=== PATIENT | female | born 2000 | race Hispanic/Latino ===

== ENCOUNTER 2021-04-29 01:21 | Emergency (ER) | payer SELFPAY ==
[~2021-04-29] VITALS: Ht 167.6 cm; Wt 77.1 kg
[2021-04-29 01:48] LABS: BASOPHILS # (AUTO) 0.1 (0.0-0.1); BASOPHILS % 0.7 % (0.0-1.0); EOSINOPHILS # (AUTO) 0.2 (0.0-0.4); EOSINOPHILS % 2.9 % (0.0-6.0); HEMATOCRIT 42.9 % (34.2-44.1); HEMOGLOBIN 14.7 g/dL (12.0-16.0); LYMPHOCYTES # (AUTO) 2.6 (1.0-3.2); LYMPHOCYTES % 36.5 % (18.0-39.1); MEAN CORPUSCULAR HEMOGLOBIN 31.3 pg (28-32); MEAN CORPUSCULAR HGB CONC 34.3 g/dL (31-35); MEAN CORPUSCULAR VOLUME 91.3 fL (81-99); MONOCYTES # (AUTO) 0.6 (0.2-0.8); NEUTROPHILS # (AUTO) 3.7 (2.1-6.9); NEUTROPHILS % 51.2 % (38.7-80.0); PLATELET COUNT 264 x10e3/uL (140-360); RED CELL DISTRIBUTION WIDTH 12.9 % (11.7-14.4)
[2021-04-29] MEDS ORDERED: KETOROLAC TROMETHAMINE 30 MG/ML VIAL IV STA (01:57)
[2021-04-29 02:01] LABS: ANION GAP 13.7 mmol/L (8-16); BLOOD UREA NITROGEN 6 mg/dL (7-26); BUN/CREATININE RATIO 8 (6-25); CALCIUM 9.6 mg/dL (8.4-10.2); CARBON DIOXIDE 24 mmol/L (22-29); CHLORIDE 103 mmol/L (98-107); CREATINE KINASE 56 IU/L (29-168); CREATININE, SERUM 0.76 mg/dL (0.57-1.11); EST GLOMERULAR FILTRATION RATE 95 ML/MIN (60-); GLUCOSE 101 mg/dL (74-118); POTASSIUM 3.7 mmol/L (3.5-5.1); SODIUM 137 mmol/L (136-145)
[2021-04-29 02:10] LABS: CLARITY,URINE CLOUDY (CLEAR); COLOR,URINE YELLOW (YELLOW); KETONES,URINE NEGATIVE (NEGATIVE); LEUKOCYTE ESTERASE ,URINE NEGATIVE (NEGATIVE); NITRITE,URINE NEGATIVE (NEGATIVE); PROTEIN,URINE DIPSTICK NEGATIVE (NEGATIVE); URINE UROBILINOGEN 0.2 mg/dL (0.2 - 1)
[2021-04-29 02:45] LABS: BACTERIA,URINE MODERATE /HPF; EPITHELIAL CELLS,URINE MANY /LPF; MUCUS,URINE FEW (RARE)
== END 2021-04-29 03:06 | disposition home or self-care (01) ==
LOC: ER 02:51
DX: R07.81 Pleurodynia (principal); J18.9 Pneumonia, unspecified organism; R10.12 Left upper quadrant pain; R94.31 Abnormal electrocardiogram [ECG] [EKG]
CPT/HCPCS: 36415; 71045; 80048; 81001; 82550; 82553; 84484; 84702; 85025; 85379; 93005; 99284; J1885